=== PATIENT | male | born 1940 | race Caucasian/White ===

== ENCOUNTER 2016-09-22 08:42 | Emergency (ER) | payer MEDICARE, OTHER ==
[2016-09-22] MEDS: Acetaminophen/HYDROcodone 325-5 MG Tab PO ONE (09:14)
--- NOTE | 2016-09-22 10:13 | EDM.PDOC ---
ED HPI Trauma - General Chief Complaint: Lower Extremity Injury/Pain Stated Complaint: RIGHT HIP PAIN Time Seen by Provider: 09/22/16 08:57 Source: Reports: Patient, RN notes reviewed - History of Present Illness INITIAL COMMENTS - FREE TEXT/NARRATIVE: 76-year-old male comes in with right low back and hip discomfort. This started about 5 days ago. Is not aware of any particular injury. He has not fallen. He' s been having a lot of discomfort that starts in the right posterior lateral buttock area and then radiating down the right thigh. This is somewhat worse with motion but often difficult to find a position of comfort at rest. He has never had difficulty of this nature before. He is concerned about this being a hip problem. He does not have known history of prior arthritic type problems. No fever or chills. No voiding symptomatology. CT has had occasional paresthesias of the right thigh as well. Allergies/ADRs: Allergies Penicillins Allergy (Verified 09/22/16 08:48) Airway Tightness Home Medications: Ambulatory Orders Hydrocodone/Acetaminophen [[place] 5-325] 1 tab PO Q8HR PRN #10 tablet 09/22/16 Naproxen [Naprosyn] 500 mg PO Q12HR #14 tablet 09/22/16 Past Medical History Cardiovascular History: Reports: High cholesterol, Hypertension Social & Family History - Family History Family Medical History: Noncontributory - Tobacco Use Smoking Status *Q: Never Smoker - Caffeine Use Caffeine Use: Reports: Coffee - Recreational Drug Use Recreational Drug Use: No Review of Systems - Review of Systems Review Of Systems: See Below Constitutional: Denies: chills, fever Mouth/Throat: Reports: no symptoms Respiratory: Denies: shortness of breath, wheezing, pleuritic chest pain Cardiovascular: Denies: chest pain GI/Abdominal: Denies: Abdominal pain, Nausea, Vomiting Genitourinary: Reports: no symptoms Musculoskeletal: Reports: back pain (right low back), leg pain (right time). Denies: joint pain Skin: Reports: no symptoms Neurological: Reports: numbness (occasional numbness of the right thigh). Denies: trouble speaking, difficulty walking, weakness Trauma Exam - Physical Exam Exam: See Below General Appearance: Reports: alert, mild distress Head: Reports: atraumatic Throat/Mouth: Reports: Normal inspection, Normal oropharynx Neck: Reports: full range of motion Respiratory Exam: Reports: no respiratory distress, lungs clear, normal breath sounds Cardiovascular: Reports: regular rate, rhythm GI/Abdominal: Reports: soft, non tender Back: Reports: full range of motion. Denies: paraspinal tenderness, vertebral tenderness Extremities: Reports: no pedal edema, pelvis stable. Denies: bony-point tenderness, joint effusion Neurologic: Reports: no motor/sensory deficits, other (very mild pain with straight leg raising on the right) Skin: Reports: Normal color, Warm/dry Course - Vital Signs Last Recorded V/S: Last Vital Signs Temp 96.8 F 09/22/16 08:48 Pulse 68 09/22/16 10:20 Resp 15 09/22/16 10:20 BP 143/81 H 09/22/16 10:20 Pulse Ox 95 09/22/16 10:20 - Orders/Labs/Meds Orders: Active Orders 24 hr Category Date Time Status Hip Min 2V or 3V Rt [CR] Stat Exams 09/22/16 09:10 Taken Meds: Medications Discontinued Medications Generic Name Dose Route Start Last Admin Trade Name Freq PRN Reason Stop Dose Admin Acetaminophen/Hydrocodone Bitart 1 tab 09/22/16 09:09 09/22/16 09:14 [place] 325-5 Mg PO 09/22/16 09:10 1 tab ONETIME ONE Administration - Re-Assessments/Exams Free Text/Narrative Re-Assessment/Exam: 09/22/16 13:25 x-rays of the right hip show very mild degenerative changes. Hip x-ray does not account for the discomfort that he is currently having much more compatible with a sciatica-type problem. Have given the hydrocodone 5 325 by mouth. That is giving him some relief. Plan to start him on prednisone tapering fashion for a seven-day course. Also strongly encouraged physical therapy. Naprosyn 500 mg twice a day as well. Discharge instructions as documented Departure - Departure Time of Disposition: 10:09 Disposition: Home, Self-Care 01 Condition: fair Clinical Impression: Sciatica Qualifiers: Laterality: right Qualified Code(s): M54.31 - Sciatica, right side Prescriptions: Hydrocodone/Acetaminophen [[place] 5-325] 1 tab PO Q8HR PRN #10 tablet PRN Reason: Pain Naproxen [Naprosyn] 500 mg PO Q12HR #14 tablet Instructions: Sciatica, [id number] Referrals: Miles Delgado MD [Primary Care Provider] - Forms: ED Department Discharge Additional Instructions: rest hip and back, no heavy lifting until symptoms have completely resolved, Naprosyn 500 mg twice daily with food for pain and inflammation, prednisone daily as prescribed starting today, he may also take Tylenol once or twice a day for extra pain relief or hydrocodone if needed for severe pain, did not take hydrocodone and Tylenol at the same time, do not drive within 6-8 hours of taking hydrocodone, physical therapy also highly recommended, followup with your regular medical provider if not much better within 5-10 days as expected, return to ED as needed - My Orders Last 24 Hours: My Active Orders 09/22/16 09:10 Hip Min 2V or 3V Rt [CR] Stat - Assessment/Plan Last 24 Hours: My Active Orders 09/22/16 09:10 Hip Min 2V or 3V Rt [CR] Stat
[2016-09-22 10:38] VITALS: BP 143/81
--- NOTE | 2016-09-22 13:24 | CR ---
Right hip: AP and frog-leg lateral views of the right hip were obtained. Comparison: No previous study. Joint space within the right hip is preserved. Sacroiliac joints are unremarkable. No fracture or other abnormality is seen. Impression: 1. No abnormality is appreciated on right hip exam. Diagnostic code #1
== END 2016-09-22 10:20 | disposition home or self-care (01) ==
LOC: JD.ED 08:42
DX: M54.31 Sciatica, right side (principal); Z88.0 Allergy status to penicillin
CPT/HCPCS: 73502; 99283; A9270

== ENCOUNTER 2022-06-03 10:16 | Emergency (ER) | payer MEDICARE, OTHER ==
[2022-06-03 11:54] VITALS: BP 192/80; PULSE 54
== END 2022-06-03 13:35 | disposition home or self-care (01) ==
LOC: JD.ED 10:16
DX: I82.811 Embolism and thrombosis of superficial veins of right lower extremity (principal); E78.00 Pure hypercholesterolemia, unspecified; I10 Essential (primary) hypertension; Z88.0 Allergy status to penicillin; Z79.01 Long term (current) use of anticoagulants; Z79.899 Other long term (current) drug therapy
CPT/HCPCS: 93971-26-RT; 93971-RT; 99283

== ENCOUNTER 2023-04-06 20:35 | Emergency (ER) | payer MEDICARE, OTHER ==
[2023-04-06] MEDS ORDERED: Sodium Chloride 0.9% 10 ML Syringe FLUSH PRN (21:26)
[2023-04-06] MEDS ORDERED: Aspirin 81 MG Tab.Chew PO ONE (21:26)
[2023-04-06 21:55] LABS: BASOPHILS ABSOLUTE AUTO 0.1 K/mm3 (0.0-0.2); BASOPHILS PERCENT AUTO 0.8 % (0.0-1.0); EOSINOPHILS ABSOLUTE AUTO 0.2 K/mm3 (0.0-0.4); EOSINOPHILS PERCENT AUTO 2.4 % (0.0-6.0); HEMATOCRIT 42.6 % (42.0-52.0); HEMOGLOBIN 14.3 gm/dl (14.0-18.0); IMMATURE GRAN ABSOLUTE AUTO 0.05 K/mm3 (0.00-0.05); IMMATURE GRAN PERCENT AUTO 0.6 % (0.0-0.4); LYMPHOCYTES ABSOLUTE AUTO 1.9 K/mm3 (1.0-4.8); LYMPHOCYTES PERCENT AUTO 21.4 % (24.0-44.0); MEAN CORPUSCULAR HEMOGLOBIN 30.8 pg (28.0-32.0); MEAN CORPUSCULAR HGB CONC 33.6 g/dl (32.0-36.0); MEAN CORPUSCULAR VOLUME 91.6 fl (83.0-99.0); MEAN PLATELET VOLUME 10.1 fl (9.4-12.4); MONOCYTES ABSOLUTE AUTO 0.8 K/mm3 (0.0-0.8); MONOCYTES PERCENT AUTO 8.9 % (0.0-8.0); NEUTROPHILS PERCENT AUTO 65.9 % (41.0-71.0); PLATELET COUNT,PLT 184 K/mm3 (150-400); RED BLOOD CELL COUNT 4.65 M/mm3 (4.52-5.90); WHITE BLOOD CELL COUNT,WBC 9.08 K/mm3 (3.9-11.3)
[2023-04-06 22:00] LABS: A/G RATIO 1.1 (1-2); ALBUMIN 3.3 g/dl (3.4-5.0); ANION GAP 12.9 (5-15); BILIRUBIN TOTAL 0.5 mg/dL (0.2-1.0); BUN/CREATININE RATIO 21.3 (14-18); CALCIUM 8.7 mg/dL (8.5-10.1); CREATININE 1.6 mg/dL (0.7-1.3); EST CRCL DRUG DOSING (CG) 34.85 mL/min; MAGNESIUM 1.7 mg/dL (1.8-2.4); POTASSIUM,K 3.9 mEq/L (3.5-5.1); PROTEIN TOTAL,TP 6.4 g/dl (6.4-8.2)
[2023-04-06 22:35] LABS: D-DIMER QUANTITATIVE 1.44 mg/L (0.19-0.50); INR 1.01; PROTHROMBIN TIME 10.8 SECONDS (9.7-12.0)
[2023-04-06] MEDS ORDERED: Iopamidol 755 Mg/ML 100 ML Bottle IVPUSH ONE (23:07)
[2023-04-06] MEDS ORDERED: Sodium Chloride 0.9% 100 ML IV SCH (23:15)
[2023-04-07] MEDS ORDERED: Magnesium Oxide 400 MG Tab PO ONE (01:40)
[2023-04-07] MEDS ORDERED: Apixaban 5 MG Tab PO ONE (01:40)
[2023-04-07 02:42] VITALS: PULSE 75
[2023-04-07 02:50] VITALS: BP 164/107
== END 2023-04-07 02:15 | disposition home or self-care (01) ==
LOC: JD.ED 20:35
DX: I48.92 Unspecified atrial flutter (principal); E78.00 Pure hypercholesterolemia, unspecified; I10 Essential (primary) hypertension; Z88.0 Allergy status to penicillin; Z79.899 Other long term (current) drug therapy; Z79.01 Long term (current) use of anticoagulants
CPT/HCPCS: 36415; 71045; 71275; 80053; 83735; 83880; 84484; 85025; 85379; 85610; 93005; 99285; A9270; J3490; Q9967; 93010; 99284